=== PATIENT | male | born 1950 | race Caucasian/White ===

== ENCOUNTER 2016-07-28 13:22 | Inpatient (IN) | payer MEDICARE, OTHER ==
--- NOTE | ~2016-07-28 | CR72 ---
[facility] A Service of [facility] RADIOLOGY TEXT RESULTS PATIENT: CODY LOCKE LOCATION: C5 566-01 : 50 UNIT #: [id number] AGE: [address]: Nithya Varner MD SEX: M ORDER DR: [id number] [facility] [address] [facility]. [place], [place] [address] [id number] MR#: [id number] Acc #: [id number] NAME: CODY LOCKE : 1950 SEX: M STUDY DATE/TIME: 07/28/2016 15:31 UNIT: [facility] ROOM: [facility] STUDY DESCRIPTION: CR Chest Single View Portable Attending Physician: Noe Swanson M.D. Ordering Physician: Manasa Not Listed Primary Care Physician: Leonid Patricio M.D. MEDICAL IMAGING REPORT This report is preliminary unless electronic signature is present EXAM Portable AP view of the chest COMPARISON January 29, 2015 INDICATIONS 65-year-old male with respiratory failure today. Endotracheal tube placement. FINDINGS The endotracheal tube is located approximately 4.8 cm above the adina. Gastric suction tube side port within the gastric body. There are low lung volumes. No evidence of pneumothorax. There is minimal hazy attenuation in the left lung base perhaps representing atelectasis and/or pleural effusion. Left basilar pneumonia cannot entirely be excluded. IMPRESSION 1. Endotracheal tube appears adequately positioned with tip terminating 4.8 cm above the adina. Gastric suction tube side port is within the stomach. 2. Low lung volumes with left basilar opacities favoring atelectasis although pneumonia and/or small pleural effusion cannot be excluded on the left. Dictated by... George Parra M.D. THIS IS AN ELECTRONICALLY VERIFIED REPORT George Parra M.D. at 08/02/2016 5:32 PM BLM/to [facility] A Service of [facility] RADIOLOGY TEXT RESULTS PATIENT: CODY LOCKE LOCATION: [facility] [place] [facility] 566-01 : 50 UNIT #: [id number] AGE: [address]: Nithya Varner MD SEX: M ORDER DR: TD: 07/28/2016 17:48 JOB #: [id number] MEDICAL IMAGING REPORT Page 1 of 1 COPY
--- NOTE | ~2016-07-28 | FU ---
[facility] Nutrition Therapy DATE: 08/02/16 Patient: CODY LOCKE Physician: TIESHA Address: [address] [place] [address] ROAD Room/Bed: [address] [place] [address], Zip: [place] [address] Admit Date: 07/28/16 Date of : [birth year] Height: 5 10 Weight: 240 109 NUTRITION MONITORING/FOLLOW-UP: Reason: PT SEEN FOR FOLLOW-UP DX: ALTERED MENTAL STATUS Anthropometrics: 6'2", WT: 240# (109 KG), BMI: 30.8 -ADMIT WEIGHT: 231#. Labs: GLU: 128 Meds: JANUVIA, GLUCOTROL, ZOFRAN, NOVOLOG I&O's: 520/400 Skin: ABRASIONS SCATTERED; BRUISES BUE Estimated Nutrition Needs: [phone] KCAL 126-158 G PRO Assessment: CHART REVIEWED AND EVENTS NOTED. PT SEEN FOR FOLLOW-UP. PT REPORTS GOOD PO INTAKE AND APPETITE, NO C/O N/V/D. PT HAD QUESTIONS REGARDING CURRENT DIET ORDER ([facility] DIET). RD PROVIDED WRITTEN AND VERBAL [facility] DIET EDUCATION. RD PROVIDED LIST OF FOODS TO AVOID/LIMIT AND FOODS TO EAT MORE OFTEN WELL ANSWERED QUESTIONS APPROPRIATELY. PT DEMONSTRATED UNDERSTANDING OF THE TOPIC. RD TO REMAIN AVAILABLE. PLANS IN PLACE FOR PT TO D/C HOME LATER TODAY. Dx: INADEQUATE PROTEIN-ENERGY INTAKE R/T CURRENT CONDITION AEB PT INTUBATED.-RESOLVED. NEW DX:ALTERED NUTRIENT UTILIZATION R/T PMH AEB NEED FOR THERAPEUTIC DIET ORDER. Intervention: 1. CC+HH DIET 2. [facility] DIET EDUCATION Monitoring, Evaluation and Goals: 1. ENTERAL NUTRITION; PROVIDE >80% OF GOAL VOLUME X 24 HOURS-RESOLVED 2. IMPROVE LABS; GLUCOSE-ACTIVE 3. WEIGHT; PREVENT UNINTENTIONAL WEIGHT LOSS, PRESERVE LEAN BODY MASS-ACTIVE NEW GOALS: 1. ORAL INTAKE; CONSUME >50% OF MEALS W/NO C/O N/V/D MONITOR -PO INTAKE/APPETITE [facility] Nutrition Therapy DATE: 08/02/16 Patient: CODY LOCKE Physician: TIESHA Address: [address] [place] [address] ROAD Room/Bed: [address] [place] [address], Zip: [place] [phone] Admit Date: 07/28/16 Date of : [birth year] Height: 5 10 Weight: 240 109 -WEIGHTS Recommendations: 1. ENCOURAGE COMPLIANCE OF CURRENT DIET ORDER ABOVE 2. CONSULT RD IF FURTHER DIET EDUCATION REQUESTED. PT COULD BENEFIT FROM OUTPATIENT [facility] WILL F/U PER PROTOCOL PT IS MILDLY COMPROMISED Respectfully, JN SMITH MS, RD, LD Food and Nutritional Services [facility] cc: client file
--- NOTE | ~2016-07-28 | DS ---
Unit #: [id number] #: [id number] Patient: CODY LOCKE [id number] [address] [place], [place] [address] [id number] I MR#: [id number] NAME: CODY LOCKE ROOM: 566 Age: 65 Sex: M Admission Date: 07/28/2016 : 1950 Discharge Date: 08/02/2016 Attending Physician: Nithya Varner M.D. Primary Care Physician: Leonid Patricio M.D. DISCHARGE SUMMARY ADDENDUM Please see discharge summary dated 08/02/2016. Afterward, discussion was made with Dr. Machuca of pulmonary services. He recommended CT scan of the chest noncontrast. The patient underwent CT chest noncontrast prior to discharge that did not reveal any acute infiltrate, any acute mucus plugging and there were no effusions which were noted. There was plate-like atelectasis which was commented on. Dr. Machuca recommended followup with his service in two weeks. The patient otherwise was stable for discharge home. Dictated by... Nithya Varner M.D. ISN/gz TD: 08/03/2016 10:58 JOB #: [id number] DISCHARGE SUMMARY Page 1 of 1 X Nithya Varner MD X DISCHARGE SUMMARY
--- NOTE | ~2016-07-28 | CO ---
Unit #: [id number] #: [id number] Patient: CODY LOCKE [id number] [address] [place], [place] [address] [id number] I MR#: [id number] NAME: CODY LOCKE ROOM: [facility]3 Age: 65 Sex: M Admission Date: 07/28/2016 : 1950 Attending Physician: Noe Swanson M.D. Primary Care Physician: Leonid Patricio M.D. Consultation Date: 07/28/2016 CONSULTATION REPORT REASON FOR CONSULT Ventilatory management. HISTORY OF PRESENT ILLNESS This is a 65-year-old male with past medical history significant for diabetes and hypertension, who presented to the emergency room at [facility] with a sudden onset of mental status changes. Unfortunately there is no family at bedside and I am unable to reach his through the phone. Speaking with nursing staff and ER physician, patient was in his normal condition until he suddenly started becoming confused. Patient has been losing his consciousness. There is no reported history of fever, chills or cough. Patient was working on his car and per records he takes some pain medication including fentanyl. Patient was given Narcan in the ER with partial response so patient was intubated for airway protection. Currently patient intubated but upon turning his sedation off he is becoming restless and agitated. There is no focal weakness that I could notice. PAST MEDICAL HISTORY 1. Hypertension. 2. Diabetes. PAST SURGICAL HISTORY Unavailable. SOCIAL HISTORY No history of alcohol or drug abuse per records. I am unsure about smoking. ALLERGIES No known drug allergy. FAMILY HISTORY Noncontributory. REVIEW OF SYSTEMS Unable to obtain from the patient. PHYSICAL EXAMINATION Unit #: [id number] #: [id number] Patient: CODY LOCKE GENERAL: The patient is on the vent and appears comfortable right now. HEENT: Atraumatic, normocephalic. PERRLA. EOMI. NECK: Supple. No JVD. No lymphadenopathy. No signs of neck stiffness. CHEST: Clear to auscultation bilaterally. HEART: S1, S2. No murmur, gallops or rubs. ABDOMEN: Soft, nontender. Bowel sound is positive. No hepatosplenomegaly. EXTREMITIES: No edema or cyanosis. 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 SKIN: No rashes. DIAGNOSTIC STUDIES LABORATORY: Lactic acid 1.4, creatinine 1.0, glucose 114. Blood gas showed 7.45//97. White blood count 9.4. IMAGING: CT head is unremarkable. ASSESSMENT 1. Acute respiratory failure secondary to altered mental status. 2. Altered mental status. 3. Questionable drug overdose. 4. Morbid obesity. 5. Hypertension. 6. Diabetes. PLAN 1. Will continue patient on the vent but will reassess for extubation in the morning. 2. Patient may need lumbar puncture even though his history and physical exam is not consistent with meningitis. 3. No need for antibiotics at this point. 4. Will continue IV fluid and monitor urine output closely. 5. DVT and GI prophylaxis. Critical care time spent on this patient was 31 minutes. Dictated by... Sherrie Swanson M.D. EA/yumiko TD: 07/28/2016 19:01 JOB #: [id number] CONSULTATION REPORT Page 1 of 1 X SHERRIE DE SANTIAGO MD CONSULTATION REPORT
--- NOTE | ~2016-07-28 | OR ---
Unit #: [id number] #: [id number] Patient: CODY LOCKE [id number] [address] [address] [id number] I MR#: [id number] NAME: CODY LOCKE ROOM: [facility] Date of Procedure: 07/30/2016 Admission Date: 07/28/2016 Surgeon: Sherrie Swanson M.D. : 1950 Attending Physician: Nithya Varner M.D. Primary Care Physician: Leonid Patricio M.D. PROCEDURE OPERATIVE NOTE PREOPERATIVE DIAGNOSIS Respiratory failure and altered mental status. PROCEDURE PERFORMED Diagnostic lumbar puncture. INDICATION FOR PROCEDURE Fever and altered mental status. COMPLICATIONS None. PROCEDURE An informed consent was obtained from the patient's after explaining the benefits and risks of this procedure. The patient was prepped and positioned appropriately with the help of two nurses. His back was cleaned with Betadine and then numbed at the level of the L4-L5. Then a spinal needle was inserted and with three attempts until I passed CSF membrane and tiny pop was felt, then a clear fluid was flowing smoothly. Four bottles, each one with 3 ml were obtained, which will be sent for study. A stylet was inserted in the needle again and the whole needle was removed and dressing was applied. The patient will lie flat for four hours. The patient tolerated the procedure well with no immediate complications. Dictated by... Sherrie Swanson M.D. EA/deshaun TD: 07/30/2016 09:23 JOB #: [id number] Unit #: [id number] #: [id number] Patient: CODY LOCKE PROCEDURE OPERATIVE NOTE Page 1 of 1 X SHERRIE DE SANTIAGO MD PROCEDURE OPERATIVE NOTE
--- NOTE | ~2016-07-28 | XA166 ---
[facility] A Service of [facility] RADIOLOGY TEXT RESULTS PATIENT: CODY LOCKE LOCATION: [facility] 566-01 : 50 UNIT #: [id number] AGE: [address]: Nithya Varner MD SEX: M ORDER DR: [id number] [facility] [address] [facility]. [place], [place] [address] [id number] I MR#: [id number] Acc #: [id number] NAME: CODY LOCKE : 1950 SEX: M STUDY DATE/TIME: 07/29/2016 13:46 [facility] STUDY DESCRIPTION: XA PICC Line Placement WO Port Attending Physician: Nithya Varner M.D. Ordering Physician: Nithya Varner M.D. Primary Care Physician: Leonid Patricio M.D. MEDICAL IMAGING REPORT This report is preliminary unless electronic signature is present EXAM Right arm PICC line insertion 07/29/2016 HISTORY IV access needed. PRE-PROCEDURE The procedure was explained to the patient and/or patient customer counter representative including risks, benefits, potential complications and potential for alternative forms of treatment. Informed consent was obtained, and prior to initiating the procedure a formal timeout procedure was performed. PROCEDURE Using full standard sterile barrier technique, including caps, gowns, gloves, masks, as well as sterile skin preparation and standard sterile draping, the right arm was prepped and draped in the usual fashion, and real-time sterile ultrasound guidance was used to localize an arm vein and to confirm vessel patency. A hard copy ultrasound image was recorded. After local anesthesia with 1% Xylocaine, the vein was punctured using real-time sterile ultrasound guidance, and a 0.018 guidewire was advanced into the superior vena cava, using fluoroscopic guidance. A 5 Faroese dual-lumen PICC was then measured and deployed with the tip positioned in the superior vena cava. The position of the line was documented with a radiographic image. The line was secured in place with an adhesive dressing and an antibiotic patch was applied. Total fluoro time was 0.1 minutes. IMPRESSION Successful placement of a 5 Faroese dual-lumen PowerPICC via the right arm under ultrasound and fluoroscopic guidance. The tip of the PICC is in good position in the superior vena cava. [facility] A Service of [facility] RADIOLOGY TEXT RESULTS PATIENT: CODY LOCKE LOCATION: [facility] 566-01 : 50 UNIT #: [id number] AGE: [address]: Nithya Varner MD SEX: M ORDER DR: Dictated by... Malcolm Murphy M.D. THIS IS AN ELECTRONICALLY VERIFIED REPORT Malcolm Murphy M.D. at 08/02/2016 10:32 AM LIBERTAD/levon TD: 07/30/2016 11:32 JOB #: [id number] MEDICAL IMAGING REPORT Page 1 of 1 COPY
--- NOTE | ~2016-07-28 | CR72 ---
[facility] A Service of [facility] RADIOLOGY TEXT RESULTS PATIENT: CODY LOCKE LOCATION: [facility] [address] : [birth year] UNIT #: [id number] AGE: [address]: Nithya Varner MD SEX: M ORDER DR: [id number] [facility] [address] [facility] [address] [facility]. [place], [place] [address] [id number] I MR#: [id number] Acc #: [id number] NAME: CODY LOCKE : 1950 SEX: M STUDY DATE/TIME: 07/30/2016 3:51 UNIT: [facility] ROOM: [facility] STUDY DESCRIPTION: CR Chest Single View Portable Attending Physician: Nithya Varner M.D. Ordering Physician: Physician Non-Staff Primary Care Physician: Leonid Patricio M.D. MEDICAL IMAGING REPORT This report is preliminary unless electronic signature is present EXAM AP portable chest 07/30/2016 03:51 HISTORY Endotracheal tube placement. On ventilator. Acute renal status changes. Symptoms present since yesterday. COMPARISON AP portable chest 07/28/2016 FINDINGS ET tube, NG tube, unchanged. Right arm approach PICC tip extends into the right atrial level. No definite pneumothorax is seen. Patient is rotated toward the right and allowing for this degree of cardiomediastinal enlargement is probably not significantly changed. There is some linear subsegmental atelectasis in the right base. The medial left basilar atelectasis/infiltrate unchanged. Probable small layering left pleural effusion. IMPRESSION 1. New right arm approach PICC tip placement to the right atrial level. No visible pneumothorax. 2. Allowing for patient rotation toward the right on today's examination, the left basilar atelectasis/infiltrate, small left pleural effusion and mild right basilar segmental atelectasis is unchanged. Dictated by... Paula Dailey M.D. THIS IS AN ELECTRONICALLY VERIFIED REPORT [facility] A Service of [facility] & [facility] RADIOLOGY TEXT RESULTS PATIENT: CODY LOCKE LOCATION: [facility] 5608-26 : 50 UNIT #: [id number] AGE: [address]: Nithya Varner MD SEX: M ORDER DR: Paula Dailey M.D. at 08/04/2016 4:12 PM MARIN/brinda TD: 07/30/2016 09:12 JOB #: [id number] MEDICAL IMAGING REPORT Page 1 of 1 COPY
--- NOTE | ~2016-07-28 | CT57 ---
[facility] A Service of [facility] & [facility] RADIOLOGY TEXT RESULTS PATIENT: CODY LOCKE LOCATION: [facility] 566-01 : 50 UNIT #: [id number] AGE: [address]: Nithya Varner MD SEX: M ORDER DR: [id number] [facility] [address] [place], [place] [address] [id number] I MR#: [id number] Acc #: [id number] NAME: CODY LOCKE : 1950 SEX: M STUDY DATE/TIME: 08/02/2016 11:56 UNIT: [facility] ROOM: [facility] STUDY DESCRIPTION: CT Chest Wo Cont Attending Physician: Nithya Varner M.D. Ordering Physician: Concepción Machuca M.D. Primary Care Physician: Leonid Patricio M.D. MEDICAL IMAGING REPORT This report is preliminary unless electronic signature is present EXAM CT chest without contrast, 08/02/2016 11:56 hours HISTORY 65-year-old man with cough for 1 week. Evaluate for pneumonia. COMPARISON CT chest 01/29/2015 and chest x-ray 07/30/2016 TECHNIQUE Helical noncontrasted images were obtained from the thoracic inlet through the adrenal glands. Sagittal and coronal reconstructions were performed. No contrast was administered. Total exam DLP 678 mGy-cm. This CT exam was performed with one or more of the following radiation dose reduction techniques: automatic exposure control, adjustment of mA and/or kV according to patient size, and iterative reconstruction. FINDINGS Images through the thoracic inlet demonstrate no thyromegaly or mass. There is no adenopathy. There is a right PICC line with tip terminating at the junction of SVC and right atrium. Images through the chest demonstrate normal caliber aorta. There is no pathologic mediastinal, hilar or axillary adenopathy. Cardiac chambers are normal. There is no pericardial fluid. The esophagus is normal. The lungs are well expanded. There is linear scar in the right middle lobe unchanged. There is linear to band-like atelectasis in the right lower lobe new from 01/29/2015. There is minimal linear scar in the lingular segment of the left upper lobe. There is linear to band-like atelectasis at the left base anteriorly greater than posteriorly in the same area of similar finding on 01/29/2015. Some increase in linear STS. [facility] A Service of [facility] RADIOLOGY TEXT RESULTS PATIENT: CODY LOCKE LOCATION: [facility] 566-01 : 50 UNIT #: [id number] AGE: [address]: Nithya Varner MD SEX: M ORDER DR: atelectasis posteriorly at the left base. There is no definite pneumonia. There may be an element of mild traction bronchiectasis in the left lower lobe. Limited views through the upper abdomen demonstrate no adrenal lesion. The liver and spleen appear normal. IMPRESSION There is linear scar in the right middle lobe and lingula. There is new linear to plate-like atelectasis in the right lower lobe as compared to CT 01/29/2015. There is persistent atelectasis or chronic scar in the left lower lobe anteriorly unchanged from 01/29/2015. There is slight increase in linear scar or atelectasis at the posterior left lung base with very mild left lower lobe bronchiectasis suggested. There is no mucous plugging. No evidence of pneumonia or edema. There are no effusions. Dictated by... Sheela Mendieta M.D. THIS IS AN ELECTRONICALLY VERIFIED REPORT Sheela Mendieta M.D. at 08/02/2016 2:29 PM Trisha TD: 08/02/2016 14:21 JOB #: [id number] MEDICAL IMAGING REPORT Page 1 of 1 COPY
--- NOTE | ~2016-07-28 | DS ---
Unit #: [id number] #: [id number] Patient: CODY LOCKE [id number] [facility] [address] [place], [place] [address] [id number] I MR#: [id number] NAME: CODY LOCKE ROOM: 566 Age: 65 Sex: M Admission Date: 07/28/2016 : 1950 Discharge Date: 08/02/2016 Attending Physician: Nithya Varner M.D. Primary Care Physician: Leonid Patricio M.D. DISCHARGE SUMMARY REASON FOR ADMISSION Unresponsive. HISTORY OF PRESENT ILLNESS The patient is a 65-year-old male with prior history of diabetes, hypertension, chronic pain syndrome, narcotic dependence, who presented to [facility] status post found unresponsive. He was intubated subsequently and was subsequently transferred to [facility] for further evaluation. He initially responded to Narcan. He became quite agitated. His blood pressure subsequently dropped and became hypotensive. He had acute hypoxic respiratory failure. He was appropriately sedated, placed in the ICU, and consultation was placed to Dr. Swanson of pulmonary services. Through ICU course and secondary to mental status change/unresponsiveness, concern for possible meningitis was made and therefore patient ultimately underwent epidural which did not reveal findings consistent with meningitis but he was placed on appropriate droplet precautions on the initial part of this hospital stay. Blood cultures x2 did not yield any acute bacterial growth. His sputum culture, however, did reveal E. coli and therefore consultation was placed to infectious disease services who are already calling for concerns for possible underlying meningitis. The patient while here was placed on Rocephin and at time of discharge will be given Augmentin times an additional five days. After his time in his ICU, he was gradually weaned off the ventilator, placed on O2 via nasal cannula and has since been placed on room air. It seems likely that his unresponsiveness/acute hypoxic respiratory failure is both secondary to chronic narcotic dependence as well as E. coli pneumonia. Also noted, patient did develop some mild hematuria. He was placed on Lovenox while he was here. This has since been discontinued at time of discharge. His aspirin will also be decreased from 325 mg to 81 mg. I have asked him to follow up with his primary care physician in approximately 7-10 days for repeat urinalysis. At that point in time if he does show persistent hematuria, outpatient neurological evaluation may be obtained. Unit #: [id number] #: [id number] Patient: CODY LOCKE I have recommended to him as well as his that he should seek discussion with a pain management physician and/or his family physician about decreasing his pain medications as it seems likely that his acute respiratory failure was secondary to narcotic medications and/or pain medications. He expressed understanding and agreement as did his present at bedside. FINAL DISCHARGE DIAGNOSES 1. Acute hypoxic respiratory failure. 2. Unresponsive secondary to narcotic/pain medication overuse. 3. Escherichia coli pneumonia. 4. Hypertension. 5. Hyperlipidemia. 6. Chronic pain syndrome. 7. Narcotic dependence. 8. Osteoarthritis. 9. Diabetes. FINAL DISCHARGE MEDICATIONS 1. Glucotrol 5 mg p.o. b.i.d. with breakfast and dinner. 2. Baclofen 10 mg p.o. t.i.d. 3. Augmentin 875 mg p.o. b.i.d. x5 days. 4. Percocet 10/325 one tablet p.o. q.8 p.r.n. Note: Change from previous q.4. 5. Duragesic 50 mcg topical q.72 hours. 6. Aspirin 81 mg p.o. daily. 7. Zestril 10 mg p.o. daily. 8. Janumet one tablet p.o. b.i.d. 9. Lipitor 80 mg p.o. nightly. 10. Elavil 150 mg p.o. nightly. 11. Neurontin 800 mg p.o. b.i.d. 12. Tylenol 650 mg p.o. q.6 p.r.n. 13. Proventil HFA inhalation q.4 p.r.n. DISCHARGE CONDITION Stable. DISCHARGE DISPOSITION Home. FOLLOWUP Followup PCP in 7-10 days. Repeat urinalysis, BMP, as well as, CBC at that point in time. Dictated by... Nityha Varner M.D. RACHAEL/serjio TD: 08/02/2016 10:37 JOB #: [id number] Unit #: [id number] #: [id number] Patient: CODY LOCKE DISCHARGE SUMMARY Page 1 of 1 X Nithya Varner MD DISCHARGE SUMMARY
--- NOTE | ~2016-07-28 | CR281 ---
[facility] A Service of [facility] & [facility] / [facility] RADIOLOGY TEXT RESULTS PATIENT: CODY LOCKE LOCATION: [address] : [birth year] UNIT #: [id number] AGE: [address]: Nithya Varner MD SEX: M ORDER DR: [id number] [facility] [address] [place], [place] [address] [id number] MR#: [id number] Acc #: [id number] NAME: CODY LOCKE : 1950 SEX: M STUDY DATE/TIME: 07/30/2016 21:35 UNIT: [facility] ROOM: [facility] STUDY DESCRIPTION: CR Wrist Min 3 View Lt Attending Physician: Nithya Varner M.D. Ordering Physician: Rachael Swanson M.D. Primary Care Physician: Leonid Patricio M.D. MEDICAL IMAGING REPORT This report is preliminary unless electronic signature is present EXAM Left wrist, 07/30/2016. HISTORY Left wrist pain after falling today. FINDINGS 3 views of the left wrist were obtained. No fractures are identified. The bones are normal. IMPRESSION Normal left wrist. Dictated by... Brad Bhagat M.D. THIS IS AN ELECTRONICALLY VERIFIED REPORT Brad Bhagat M.D. at 07/31/2016 2:01 PM EZEQUIEL/levon TD: 07/31/2016 10:20 JOB #: [id number] MEDICAL IMAGING REPORT Page 1 of 1 COPY
--- NOTE | ~2016-07-28 | HP ---
Unit #: [id number] #: [id number] Patient: CODY LOCKE [id number] [facility] [address] [facility] [place], [place] [address] [id number] MR#: [id number] NAME: CODY LOCKE ROOM: [facility]ICCU3 Age: 65 Sex: M Admission Date: 07/28/2016 : 1950 Attending Physician: Noe Swanson M.D. Primary Care Physician: Leonid Patricio M.D. HISTORY AND PHYSICAL REVISED REPORT CHIEF COMPLAINT Unresponsiveness. HISTORY OF PRESENT ILLNESS The patient is a 65-year-old male with a history of diabetes and hypertension brought to [facility] status post found unresponsive. The patient is status post intubation and the history is obtained by reviewing the records and speaking to the ER physician. The patient was found unresponsive outside on the driveway slumped door on the car steering. The patient was brought to the emergency room and received a round of Narcan. The patient responded to the Narcan, became agitated. The patient's blood pressure dropped to 40/30 and sats down to 80%. The patient is status post intubation. The patient also received Ativan, Zyprexa and Romazicon in the emergency room at [facility]. The patient had workup with CT of the head negative and opiates in the urine tox. The patient was transferred to [facility] for further care. The patient is on a Diprivan drip and sedated. PAST MEDICAL HISTORY Hypertension, diabetes, high cholesterol and insomnia. PAST SURGICAL HISTORY Unknown. SOCIAL HISTORY Unable to obtain. FAMILY HISTORY Unable to obtain. ALLERGIES Sulfa and Versed. MEDICATION 1. Janumet. 2. Aspirin. 3. Imodium. 4. Triamcinolone. 5. Glipizide. 6. Fentanyl patch. 7. Percocet. Unit #: [id number] #: [id number] Patient: CODY LOCKE 8. Lipitor. 9. Gabapentin. 10. Amitriptyline. 11. Lisinopril. 12. Tylenol #3. 13. Baclofen. REVIEW OF SYSTEMS Unable to obtain. PHYSICAL EXAMINATION GENERAL APPEARANCE: The patient is status post intubation and sedation. VITAL SIGNS: Temperature afebrile, 97.5. Blood pressure 120/76. Heart rate 76. Sating 100%. HEENT: Head: Atraumatic, normocephalic. ENT: Pupils equal, round and reactive to light and accommodation. NECK: Supple. LUNGS: Clear breath sounds. Decreased air entry. HEART: Regular rate and rhythm. Tachycardiac. ABDOMEN: Soft. EXTREMITIES: No cyanosis. No clubbing. NEUROLOGIC: Sedated and intubated. PSYCHIATRIC: Sedated and intubated. DIAGNOSTIC STUDIES LABORATORY: From the outside hospital, the patient's UA shows negative. WBC 10.5, hemoglobin 12.4, hematocrit 37.6, platelets 165. Alcohol is none detected. Salicylate level less than 6. Acetaminophen level less than 5. Troponin less than 0.01. Glucose 120, BUN 26, creatinine 1.8, sodium 140, potassium 4.2, chloride 100, bicarb 22, AST 18, ALT 17, anion gap 18. IMAGING: The head CT shows ill-defined band of hypodensity coursing through the right cerebral hemisphere, apparently represents artifact on the coronal reconstructions. No acute abnormality. CARDIOVASCULAR: EKG shows sinus rhythm, sinus tachycardia at a rate of 108 beats per minute. No ST changes. ASSESSMENT 1. Unresponsiveness. 2. Narcotic overdose, opiate overdose. 3. Acute respiratory failure status post intubation. PLAN Admit the patient to inpatient with ICU. The patient will have repeat labs, CBC, BMP, lactic acid and ABG today. The patient will have Pulmonary consult with Dr. Machuca for weaning of the vent. The patient will have a Psyche consult when the patient is extubated. Hold the narcotics. Continue with the low dose sliding scale and IV fluids, D5 half NS at 75 mL/hour and further recommendations to follow as more labs are available. Dictated by Noe Swanson M.D. AMA/daniel Unit #: [id number] #: [id number] Patient: CODY LOCKE TD: 07/28/2016 14:01 JOB #: [id number] HISTORY AND PHYSICAL Page 1 of 1 X X HISTORY AND PHYSICAL
--- NOTE | ~2016-07-28 | A ---
[facility] Nutrition Therapy DATE: 07/29/16 Patient: CODY LOCKE Physician: TIESHA Address: [address] [place] [address] ROAD Room/Bed: [address], Zip: [place] [address] Admit Date: 07/28/16 Date of : [birth year] Height: Weight: 242 110 NUTRITIONAL ASSESSMENT: REASON: Enteral nutrition recommendations, pt intubated 65 yo male admitted for AMS PMH: HTN, DM, HLD, asthma, back pain Anthropometrics: Ht: 6'2" Adm wt: 105 kg BMI: 29.7 Labs: Gluc 150 Accuchecks 124-164 Meds: Propofol @ 32.3 mL/hr, fentanyl, novolog, protonix, D5% I/O & Bowel function: 1418/2710, last BM unknown Skin Integrity: Abrasions scattered Bruises BUE Edema: none noted Estimated Nutrition Needs: 8158-8838 kcals (20-25 kcals/kg) 126-158 grams protein (1.2-1.5 grams/kg) Assessment: Chart reviewed, events noted. 65 yo male admitted for AMS after being found down. Pt is intubated and sedated in the ICU. Propofol is providing an additional 853 kcals from lipids at this time. Per RN report, meningitis is being ruled out. No family in room to provide nutritional history at this time. RN requested enteral nutrition recommendations. Of note, the pt has been ordered a heart healthy diet; however, he is on the vent. Please see below. Dx: Inadequate protein-energy intake RT clinical condition AEB intubated. Intervention: 1. NPO 2. Enteral nutrition Monitoring, Evaluation and Goals: 1. Enteral nutrition; initiate, provide >80% goal volume x 24 hrs 2. Improve labs; glucose 3. Weight; prevent unintentional weight loss, preserve lean body mass [facility] Nutrition Therapy DATE: 07/29/16 Patient: CODY LOCKE Physician: TIESHA Address: [address] [place] [address] ROAD Room/Bed: [address], Zip: [place] [address] Admit Date: 07/28/16 Date of : [birth year] Height: Weight: 242 110 Recommendations: 1. Once medically feasible, initiate enteral nutrition with Glucerna 1.5 @ 20 mL/hr. Increase by 10 mL q 6 hrs as tolerated to indicated goal: WHILE THE PT IS RECEIVING PROPOFOL: -Increase Glucerna 1.5 to 40 mL/hr + 60 mL Prostat BID (TOTAL OF 4 PACKETS) to provide: 2693 kcals/ 121 grams protein/ 730 mL free H20 WHEN PROPOFOL IS DISCONTINUED: -Increase Glucerna 1.5 to 65 mL/hr + 30 mL Prostat BID (TOTAL OF 2 PACKETS) to provide: 2540 kcals/ 130 grams protein/ 1186 mL free H20 2. If the pt is extubated, recommend PRODUCT APPLICATIONS SCIENTIST evaluation to determine if the pt can safely tolerate PO intake. Advance diet per PRODUCT APPLICATIONS SCIENTIST recommendations + HH/CC diet restrictions. Pt is at moderate-severe nutritional risk. RD will follow hospital course per protocol. Respectfully, NILA NEWELL RD, LD [employer] [facility] cc: client file
[2016-07-28 15:06] LABS: BASOPHIL# 0.1 X10e3 (0-0.3); BASOPHIL% 0.8 % (0-2.5); EOSINOPHIL# 0.2 X10e3 (0-0.7); EOSINOPHIL% 2.2 % (0.0-7.0); HEMATOCRIT 41.7 % (38.0-50.0); HEMOGLOBIN 13.6 gm/dL (13.0-16.0); LYMPHOCYTE# 1.9 X10e3 (1.0-3.5); MEAN CELL VOLUME 92.4 FL (83-96); MEAN CORPUSCULAR HGB CONC 32.5 g/dL (30-36); MEAN PLATELET VOLUME 9.1 FL (6.5-11.5); MONOCYTE# 0.7 X10e3 (0-1.0); MONOCYTE% 7.5 % (3.0-12.0); NEUTROPHIL# 6.5 X10e3 (1.5-7.1); NEUTROPHIL% 69.5 % (40-75); PLATELET COUNT 141 X10e3 (140-420); RED BLOOD COUNT 4.51 X10e (3.90-5.60); RED CELL DISTRIBUTION WIDTH 14.1 % (11.0-15.5); WHITE BLOOD COUNT 9.4 X10e3 (4.0-10.5)
[2016-07-28 15:10] LABS: DIFF IND NO
[2016-07-28 15:29] LABS: CALCIUM SERUM 9.1 mg/dL (8.4-10.2); GLOM FILT RATE Estimated 78.6 mL/min (>60); POTASSIUM 4.1 mmol/L (3.5-5.1)
[2016-07-28 15:39] LABS: ARTERIAL BLD GAS O2 SATURATION 97.2 % (90.0-100.0); ARTERIAL BLOOD GAS ALLEN TEST NORMAL; ARTERIAL BLOOD GAS ART SITE RIGHT RADIAL; ARTERIAL BLOOD GAS CARBOXY HB 0.2 %sat (0.0-9.0); ARTERIAL BLOOD GAS DELIVERY VENT; ARTERIAL BLOOD GAS MET HB 0.7 %sat (0.0-2.0); ARTERIAL BLOOD GAS PCO2 31.2 mmHg (35.0-45.0); ARTERIAL BLOOD GAS PO2 97.2 mmHg (80.0-100); ARTERIAL BLOOD GAS VENT MODE AC; ARTERIAL BLOOD GAS pH 7.475 (7.350-7.450); ARTERIAL DRAW? YES
[2016-07-29 03:55] LABS: ARTERIAL BLD GAS O2 SATURATION 95.8 % (90.0-100.0); ARTERIAL BLOOD GAS CARBOXY HB 0.2 %sat (0.0-9.0); ARTERIAL BLOOD GAS HCO3 24.8 mmol/L; ARTERIAL BLOOD GAS MET HB 0.8 %sat (0.0-2.0); ARTERIAL BLOOD GAS PCO2 30.6 mmHg (35.0-45.0); ARTERIAL BLOOD GAS pH 7.517 (7.350-7.450)
[2016-07-29 03:57] LABS: ARTERIAL BLOOD GAS ART SITE RIGHT BRACHIAL; ARTERIAL BLOOD GAS DELIVERY VENT; ARTERIAL BLOOD GAS PO2 77.8 mmHg (80.0-100); ARTERIAL BLOOD GAS VENT MODE AC; ARTERIAL DRAW? YES
[2016-07-29 04:23] LABS: BASOPHIL# 0.1 X10e3 (0-0.3); BASOPHIL% 0.5 % (0-2.5); EOSINOPHIL# 0.1 X10e3 (0-0.7); EOSINOPHIL% 0.6 % (0.0-7.0); HEMATOCRIT 44.6 % (38.0-50.0); HEMOGLOBIN 14.3 gm/dL (13.0-16.0); LYMPHOCYTE# 2.1 X10e3 (1.0-3.5); LYMPHOCYTE% 18.4 % (17.0-45.0); MEAN CELL VOLUME 93.2 FL (83-96); MEAN CORPUSCULAR HEMOGLOBIN 29.9 PG (28-34); MEAN CORPUSCULAR HGB CONC 32.1 g/dL (30-36); MEAN PLATELET VOLUME 9.7 FL (6.5-11.5); MONOCYTE# 0.9 X10e3 (0-1.0); MONOCYTE% 8.1 % (3.0-12.0); NEUTROPHIL# 8.3 X10e3 (1.5-7.1); NEUTROPHIL% 72.4 % (40-75); PLATELET COUNT 145 X10e3 (140-420); RED BLOOD COUNT 4.79 X10e (3.90-5.60); RED CELL DISTRIBUTION WIDTH 14.4 % (11.0-15.5); WHITE BLOOD COUNT 11.5 X10e3 (4.0-10.5)
[2016-07-29 04:25] LABS: DIFF IND NO
[2016-07-29 04:43] LABS: BUN/CREATININE RATIO 16.25; CALCIUM SERUM 9.4 mg/dL (8.4-10.2); CREATININE SERUM 0.8 mg/dL (0.6-1.4); GLOM FILT RATE Estimated 93.8 mL/min (>60); POTASSIUM 3.9 mmol/L (3.5-5.1)
[2016-07-29] MEDS ORDERED: ZESTRIL10 M1 PO (17:45)
[2016-07-29] MEDS ORDERED: GLUCOTROL PO (17:54)
[2016-07-29] MEDS ORDERED: MELOXICAM7.5 MG PO (17:55)
[2016-07-29] MEDS ORDERED: ATORVASTATIN CA80 MG PO (17:55)
[2016-07-29] MEDS ORDERED: LIORESAL10 MG PO (17:56)
[2016-07-29] MEDS ORDERED: OXYCODONE-ACET1 EAC1 PO (17:57)
[2016-07-29] MEDS ORDERED: JANUMET 50-1,01 EACH PO (17:58)
[2016-07-29] MEDS ORDERED: NEURONTIN800 MG PO (17:58)
[2016-07-29] MEDS ORDERED: AMITRIPTYLINE H50 MG PO (17:59)
[2016-07-29] MEDS ORDERED: DURAGESIC1 EAC1 TD (18:00)
[2016-07-29] MEDS ORDERED: ALBUTEROL17 GM PO (18:02)
[2016-07-29] MEDS ORDERED: ASPIRIN ENTERI325 M1 PO (18:02)
[2016-07-30 03:51] LABS: ARTERIAL BLD GAS O2 SATURATION 97.2 % (90.0-100.0); ARTERIAL BLOOD GAS CARBOXY HB 0.4 %sat (0.0-9.0); ARTERIAL BLOOD GAS HCO3 26.4 mmol/L; ARTERIAL BLOOD GAS MET HB 0.8 %sat (0.0-2.0); ARTERIAL BLOOD GAS PCO2 40.5 mmHg (35.0-45.0); ARTERIAL BLOOD GAS pH 7.423 (7.350-7.450)
[2016-07-30 03:57] LABS: ARTERIAL BLOOD GAS ART SITE RIGHT BRACHIAL; ARTERIAL BLOOD GAS DELIVERY VENT; ARTERIAL BLOOD GAS VENT MODE AC; ARTERIAL DRAW? YES
[2016-07-30 10:15] LABS: GLUCOSE-CSF 99 mg/dL (50-80); PROTEIN-CSF 46 mg/dL (15-45)
[2016-07-30 10:30] LABS: CSF APPEARANCE CLEAR (CLEAR); CSF RBC 0 CMM ([, 0]); CSF TUBE NUMBER 3; CSF WBC 0 CMM (0-8); CSF XANTHACHROMIC NO
[2016-07-31 05:57] LABS: BASOPHIL# 0.1 X10e3 (0-0.3); BASOPHIL% 0.6 % (0-2.5); EOSINOPHIL# 0.2 X10e3 (0-0.7); EOSINOPHIL% 1.5 % (0.0-7.0); HEMATOCRIT 36.9 % (38.0-50.0); HEMOGLOBIN 11.9 gm/dL (13.0-16.0); LYMPHOCYTE# 2.6 X10e3 (1.0-3.5); LYMPHOCYTE% 23.7 % (17.0-45.0); MEAN CELL VOLUME 92.6 FL (83-96); MEAN CORPUSCULAR HEMOGLOBIN 29.9 PG (28-34); MEAN CORPUSCULAR HGB CONC 32.3 g/dL (30-36); MONOCYTE# 1.2 X10e3 (0-1.0); MONOCYTE% 10.4 % (3.0-12.0); NEUTROPHIL# 7.1 X10e3 (1.5-7.1); NEUTROPHIL% 63.8 % (40-75); PLATELET COUNT 129 X10e3 (140-420); RED BLOOD COUNT 3.99 X10e (3.90-5.60); RED CELL DISTRIBUTION WIDTH 14.2 % (11.0-15.5); WHITE BLOOD COUNT 11.1 X10e3 (4.0-10.5)
[2016-07-31 06:04] LABS: DIFF IND NO
[2016-07-31 06:56] LABS: BUN/CREATININE RATIO 12.85; CALCIUM SERUM 8.2 mg/dL (8.4-10.2); CREATININE SERUM 0.7 mg/dL (0.6-1.4); GLOM FILT RATE Estimated 99.1 mL/min (>60); POTASSIUM 3.5 mmol/L (3.5-5.1)
[2016-07-31 19:21] LABS: HSV 1 DNA Not Detected (Not Detected); HSV 2 DNA Not Detected (Not Detected)
[2016-08-01 06:03] LABS: BASOPHIL# 0.1 X10e3 (0-0.3); BASOPHIL% 0.7 % (0-2.5); EOSINOPHIL% 0.2 % (0.0-7.0); HEMATOCRIT 41.8 % (38.0-50.0); HEMOGLOBIN 13.6 gm/dL (13.0-16.0); LYMPHOCYTE# 1.6 X10e3 (1.0-3.5); LYMPHOCYTE% 12.7 % (17.0-45.0); MEAN CELL VOLUME 92.7 FL (83-96); MEAN CORPUSCULAR HEMOGLOBIN 30.1 PG (28-34); MEAN CORPUSCULAR HGB CONC 32.5 g/dL (30-36); MEAN PLATELET VOLUME 10.1 FL (6.5-11.5); MONOCYTE# 1.1 X10e3 (0-1.0); MONOCYTE% 8.6 % (3.0-12.0); NEUTROPHIL# 9.6 X10e3 (1.5-7.1); NEUTROPHIL% 77.8 % (40-75); PLATELET COUNT 173 X10e3 (140-420); RED BLOOD COUNT 4.51 X10e (3.90-5.60); RED CELL DISTRIBUTION WIDTH 13.9 % (11.0-15.5); WHITE BLOOD COUNT 12.4 X10e3 (4.0-10.5)
[2016-08-01 06:05] LABS: DIFF IND NO
[2016-08-01 06:48] LABS: BUN/CREATININE RATIO 25.71; CALCIUM SERUM 9.2 mg/dL (8.4-10.2); CREATININE SERUM 0.7 mg/dL (0.6-1.4); GLOM FILT RATE Estimated 99.1 mL/min (>60); POTASSIUM 3.9 mmol/L (3.5-5.1)
[2016-08-01 18:45] LABS: URINE APPEARANCE CLEAR; URINE BILIRUBIN NEG (NEG); URINE BLOOD 3+ (NEG); URINE COLOR YELLOW; URINE GLUCOSE NEG (NEG); URINE KETONE NEG (NEG); URINE LEUKOCYTE ESTERASE NEG (NEG); URINE NITRATE NEG (NEG); URINE PH 5.5 (5-8); URINE PROTEIN NEG (NEG); URINE SPECIFIC GRAVITY 1.012 (1.003-1.035); URINE UROBILINOGEN 0.2 MG/DL (NEG)
[2016-08-01 18:47] LABS: URINE BACTERIA AUWI NEG (NEGATIVE); URINE SQUAMOUS EPITHELIAL CELL NONE SEEN /[HPF]; UWBCS1 AUWI 0-2 (0-5)
[2016-08-02 05:24] LABS: HEMATOCRIT 34.8 % (38.0-50.0); MEAN CELL VOLUME 91.7 FL (83-96); MEAN CORPUSCULAR HEMOGLOBIN 29.9 PG (28-34); MEAN CORPUSCULAR HGB CONC 32.6 g/dL (30-36); MEAN PLATELET VOLUME 8.8 FL (6.5-11.5); RED BLOOD COUNT 3.79 X10e (3.90-5.60); RED CELL DISTRIBUTION WIDTH 13.9 % (11.0-15.5); WHITE BLOOD COUNT 8.6 X10e3 (4.0-10.5)
[2016-08-02 05:27] LABS: HEMOGLOBIN 11.3 gm/dL (13.0-16.0)
[2016-08-02 06:07] LABS: BUN/CREATININE RATIO 28.75; CALCIUM SERUM 8.7 mg/dL (8.4-10.2); CREATININE SERUM 0.8 mg/dL (0.6-1.4); GLOM FILT RATE Estimated 93.8 mL/min (>60); POTASSIUM 3.6 mmol/L (3.5-5.1)
[2016-08-02] MEDS ORDERED: ASPIRIN81 MG PO (09:46)
[2016-08-02] MEDS ORDERED: ACETAMINOPHEN650 M1 PO (09:54)
[2016-08-02] MEDS ORDERED: AMOXIL875 MG PO (09:57)
[2016-08-02] MEDS ORDERED: AUGMENTIN PO (16:45)
== END 2016-08-02 19:16 | disposition home or self-care (01) | DRG 917 ==
LOC: CICCU3 13:22 → C5C 07-31 17:51
PROVIDERS: Family Medicine; Internal Medicine
PROC: 02HV33Z Insertion of Infusion Device into Superior Vena Cava, Percutaneous Approach (ICD-10-PCS; 2016-07-29)
PROC: B548ZZA Ultrasonography of Superior Vena Cava, Guidance (ICD-10-PCS; 2016-07-29)
PROC: 0Q903ZZ Drainage of Lumbar Vertebra, Percutaneous Approach (ICD-10-PCS; principal; 2016-07-30)
DX: T40.2X1A Poisoning by other opioids, accidental (unintentional), initial encounter (principal); J96.01 Acute respiratory failure with hypoxia; J15.5 Pneumonia due to Escherichia coli; G92 Toxic encephalopathy; F11.20 Opioid dependence, uncomplicated; I10 Essential (primary) hypertension; E78.5 Hyperlipidemia, unspecified; G89.4 Chronic pain syndrome; M19.90 Unspecified osteoarthritis, unspecified site; E11.9 Type 2 diabetes mellitus without complications; Z79.82 Long term (current) use of aspirin; R31.9 Hematuria, unspecified
CPT/HCPCS: 36600; 71010; 71250; 73110; 76937; 77001; 80048; 81003; 82308; 82803; 82945; 82947; 83605; 84157; 85025; 85027; 87040; 87070; 87077; 87186; 87205; 87529; 89051; 92610; 94002; 94003; 94640; 94760; 97110; 97116; 97162; 97166; C1751; C9113; G8978-GP; G8979-GP; G8980-GP; G8987-GO; G8988-GO; G8989-GO; G8996-GN; G8997-GN; G8998-GN; J0133; J0696; J1650; J1815; J2270; J2930; J3010; J3370